=== PATIENT | male | born 1975 | race Caucasian/White ===

== ENCOUNTER 2023-09-29 17:15 | Emergency (ER) | payer OTHER, MEDICARE, SELFPAY ==
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
[2023-09-29 17:20] VITALS: BP 170/98; PULSE 112; O2SAT 98
[2023-09-29 17:21] VITALS: BP 134/94; BP 137/103; PULSE 115; PULSE 116; RESP 18; TEMP 36.7; O2SAT 98; O2SAT 99; BMI 30.6
[2023-09-29] MEDS: Acetaminophen 325 MG TABLET 975 MG PO (19:33)
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
[2023-09-29] MEDS: Ketorolac Tromethamine 30 MG/ML VIAL IM (20:34)
--- NOTE | 2023-09-29 20:42 | PC.NURSE ---
pt medicated per MAR for 6/10 L wrist/shoulder and generalized back tightness.
[2023-09-29 20:46] VITALS: BP 137/103; PULSE 116; RESP 18; TEMP 36.7; O2SAT 98
== END 2023-09-29 20:46 | disposition home or self-care (01) ==
PROVIDERS: Emergency Provider Emergency Medicine
DX: S46.912A Strain of unspecified muscle, fascia and tendon at shoulder and upper arm level, left arm, initial encounter (principal); S63.502A Unspecified sprain of left wrist, initial encounter; S16.1XXA Strain of muscle, fascia and tendon at neck level, initial encounter; V43.53XA Car driver injured in collision with pick-up truck in traffic accident, initial encounter; Y93.89 Activity, other specified; Y92.411 Interstate highway as the place of occurrence of the external cause; Y99.9 Unspecified external cause status
CPT/HCPCS: 73030; 73110; 73130; 96372; 99284; J1885